=== PATIENT | female | born 1985 | race Caucasian/White ===

== ENCOUNTER 2022-05-13 18:23 | Emergency (ER) | payer OTHER, SELFPAY ==
--- NOTE | ~2022-05-13 | CT_ITS ---
EXAMINATION: CT HEAD WITHOUT CONTRAST CT CERVICAL SPINE WITHOUT CONTRAST CLINICAL INFORMATION: Loss of consciousness. Head strike. Fall. COMPARISON: None. TECHNIQUE: Imaging was performed from the skull base to vertex without intravenous administration of contrast. In addition, helical noncontrast CT imaging was acquired through the cervical spine and source images were reviewed along with axial reconstructions and sagittal and coronal MPRs. [This CT examination was performed using dose optimization techniques as appropriate, variously including the following: *Automated exposure control *Adjustment of mA and/or kV according to patient size (this includes techniques or standardized protocols for targeted exams where dose is matched to indication/reason for exam; i.e. extremities or head) *Use of iterative reconstruction technique] DLP: 967 mGy-cm FINDINGS: HEAD: No intracranial mass, hemorrhage, or midline shift is visualized. The ventricles and sulci are proportional. No extra-axial collections are identified. The paranasal sinuses and mastoid air cells are well aerated. CERVICAL SPINE: There is no evidence of acute cervical spine fracture. Vertebral bodies remain normal in height. Cervical vertebrae have normal alignment. Cervical disc heights are normal. Facet joints are normal. No pre- or paravertebral soft tissue abnormality is identified. Limited assessment of the lung apices is unremarkable. CT/CT head/brain wo con IMPRESSION: 1. No acute intracranial pathology. 2. No CT evidence of acute cervical spine fracture or traumatic subluxation
--- NOTE | ~2022-05-13 | CT_ITS ---
EXAMINATION: CT HEAD WITHOUT CONTRAST CT CERVICAL SPINE WITHOUT CONTRAST CLINICAL INFORMATION: Loss of consciousness. Head strike. Fall. COMPARISON: None. TECHNIQUE: Imaging was performed from the skull base to vertex without intravenous administration of contrast. In addition, helical noncontrast CT imaging was acquired through the cervical spine and source images were reviewed along with axial reconstructions and sagittal and coronal MPRs. [This CT examination was performed using dose optimization techniques as appropriate, variously including the following: *Automated exposure control *Adjustment of mA and/or kV according to patient size (this includes techniques or standardized protocols for targeted exams where dose is matched to indication/reason for exam; i.e. extremities or head) *Use of iterative reconstruction technique] DLP: 967 mGy-cm FINDINGS: HEAD: No intracranial mass, hemorrhage, or midline shift is visualized. The ventricles and sulci are proportional. No extra-axial collections are identified. The paranasal sinuses and mastoid air cells are well aerated. CERVICAL SPINE: There is no evidence of acute cervical spine fracture. Vertebral bodies remain normal in height. Cervical vertebrae have normal alignment. Cervical disc heights are normal. Facet joints are normal. No pre- or paravertebral soft tissue abnormality is identified. Limited assessment of the lung apices is unremarkable. CT/CT cervical spine wo con IMPRESSION: 1. No acute intracranial pathology. 2. No CT evidence of acute cervical spine fracture or traumatic subluxation
[2022-05-13 18:40] VITALS: BP 118/62; BP 122/75; PULSE 60; PULSE 95; RESP 18; TEMP 36.9; O2SAT 99; BMI 16.5
--- NOTE | 2022-05-13 19:01 | ED.NAVMDI ---
HPI - Nausea/Vomiting/Diarrhea General Chief complaint: Fall Stated complaint: fall Source: patient Mode of arrival: ambulatory Limitations: no limitations History of Present Illness HPI Narrative: 36-year-old female presents via EMS for a fall with loss of consciousness, 5 days of nausea vomiting and diarrhea, and chest pain since Wednesday. Patient does not recall the events of today. Reports to have used cocaine yesterday, smokes marijuana daily, and is on Suboxone. MD elicited complaint: nausea, vomiting and abdominal pain Pertinent past history: cyclical vomiting Onset (ago): day(s) (5) Description of vomiting: bilious Associated nausea: Yes Associated abdominal pain: Yes Location of pain: diffuse Pain consistency: constant Severity: moderate Quality: cramping Exacerbating factors: eating and movement Relieving factors: none Context: marijuana use Associated symptoms: chest pain, malaise, nausea/vomiting and change in vision Related Data Allergies Allergy/AdvReac Type Severity Reaction Status Date / Time levofloxacin [From Levaquin] Allergy Mild SHORTNESS Verified 05/13/22 18:39 OF BREATH, RASH apple [Apple] Allergy Unknown MOUTH Verified 05/13/22 18:39 SWELLING - PEEL ONLY grape [Grape] Allergy Unknown MOUTH Verified 05/13/22 18:39 SWELLING TO GRAPE PEEL Review of Systems Review of Systems: Constitutional: No Fever, No Chills ENT/Mouth: No Ear Pain, No Hoarseness, No sore throat Eyes: No Eye Pain, No Swelling, No Redness, No Foreign Body Cardiovascular: No Chest Pain, No SOB Respiratory: No Cough, No Dyspnea Gastrointestinal: No Nausea, No Vomiting, No Diarrhea, No abdominal Pain Genitourinary: No Dysuria, No Hematuria Musculoskeletal: positive joint pain, No Myalgias, No Joint Swelling Skin: No Skin lacerations, No rash Neuro: No Weakness, No Numbness, No Paresthesias, No Loss of Consciousness, No Dizziness, No Headache Psych: No Anxiety/Panic, No Depression Heme/Lymph: no easy bruising, no Lymphadenopathy Endocrine: No Polyuria, No Polydipsia Yes all other systems are reviewed and are negative Gastrointestinal: Gastrointestinal: Reports nausea PMFSH Past Medical History Attestation statement: The following information was validated with the patient. Source: old records reviewed Medical History Cannabinoid hyperemesis syndrome Opiate dependence Social History Social History Alcohol intake: never Patient Tobacco Use Status: Current everyday Tobacco user Smoked in Last 30 Days: Yes Use of substances other than those prescribed or required for medical reasons: Yes Substance Use Type: Marijuana Substance Use Frequency: Chronic Longstanding Advance Directives: No Advance Directives Information Provided: No Patient : No Physical Exam Vital Signs: Vital Signs: Last Vital Signs Temp 98.0 F 05/13/22 23:38 Pulse 60 05/13/22 23:38 Resp 16 05/13/22 23:38 BP 112/57 L 05/13/22 23:38 Pulse Ox 96 05/13/22 23:38 O2 Del Method 05/13/22 23:38 BMI result Body Mass Index 16.5 Appearance: Alert. Oriented X3. Moderate distress. Pale. Eyes: Pupils equal, round and reactive to light. ENT: Pharynx normal. Neck: Normal inspection. Neck supple. CVS: Normal heart rate and rhythm. Pulses normal. Respiratory: No respiratory distress. Breath sounds normal. Abdomen: Soft and nontender. Skin: Skin warm and dry. Normal skin color. Normal skin turgor. Extremities: No lower extremity edema. Moves all extremities against resistance. Neuro: No motor deficit. No sensory deficit. Cranial nerves 2 12 intact. Course Course Course Narrative: 36-year-old female presents via EMS for fall, dizziness, LOC, nausea, vomiting, diarrhea and abdominal pain for 5 days. Does report some chest pain and blurry vision, has been using cocaine, marijuana, and Suboxone. Patient is not forthcoming with information dry jaime, will give Zofran at this time. Physical exam is unremarkable. Will order Zofran and L of fluid. 21:30 labs are unremarkable. White count is 18.4 most likely reactive to cyclic vomiting syndrome. Order for Phenergan and Benadryl as Zofran is minimally effective. 22:30 CT scan of head and neck are negative for acute findings. 23:40 patient continues with nausea and vomiting, order for Compazine, and Valium IV push. 01:28 MEJIA positive for cocaine and marijuana. Plan of care to discharge to home. MDM - Nausea/Vomiting/Diarrhea MDM Narrative Medical decision making narrative: Cyclic vomiting syndrome Differential Diagnosis Differential diagnosis: Likely drug-induced nausea and vomiting and dehydration Medical Records Attestation: I reviewed the patient's medical records. Lab Data Attestation: I reviewed the patient's lab results. Result diagrams: 05/13/22 20:14 05/13/22 20:14 Labs: Lab Results 05/13/22 05/13/22 05/13/22 Range/Units 20:14 20:14 22:30 WBC 18.4 H (4.8-10.8) X10*3/uL RBC 4.81 (4.20-5.50) X10*6/uL Hgb 15.3 (12.0-16.0) g/dl Hct 43.7 (37.0-47.0) % MCV 90.9 (80.0-98.0) fL MCH 31.8 (27.0-33.0) pg MCHC 35.0 (31.0-35.0) g/dl RDW 12.7 (11.0-16.0) % Plt Count 193 (160-400) X10*3/uL MPV 11.1 (9.4-12.3) fL Immature Gran % (Auto) 0.5 H (0.0-0.4) % Neut % (Auto) 87.4 H (45-73) % Lymph % (Auto) 7.1 L (20-40) % [place] % (Auto) 4.6 (2-11) % Eos % (Auto) 0.2 (0-4) % Baso % (Auto) 0.2 (0-2) % Lymph # (Auto) 1.3 (1.2-4.9) X10*3/uL [place] # (Auto) 0.8 (0.1-1.2) X10*3/uL Eos # (Auto) 0.0 (0.0-0.4) X10*3/uL Baso # (Auto) 0.0 (0.0-0.2) X10*3/uL Abs Immat Gran (auto) 0.09 H (0.00-0.03) X10*3/uL Absolute Neuts (auto) 16.1 H (2.0-8.3) x10*3/uL Absolute Nucleated RBC 0.000 (0.0-0.012) X10*3/uL Nucleated RBC % (auto) 0.0 (0.0-0.2) /100WBC Sodium 141 (135-145) mmol/L Potassium 4.2 (3.3-5.1) mmol/L Chloride 106 (96-108) mmol/L Carbon Dioxide 19 L (22-29) mmol/L Anion Gap 20 (12-20) BUN 11 (9-16) mg/dL Creatinine 0.76 (0.5-1.4) mg/dL Estim Creat Clear Calc 76.5 Estimated GFR > 60 Random Glucose 115 (60-115) mg/dL Calcium 10.0 (8.4-10.2) mg/dL Magnesium 1.9 (1.6-2.6) mg/dL Total Bilirubin 0.5 (0.0-1.0) mg/dL Direct Bilirubin 0.2 (0.0-0.5) mg/dL AST 21 (5-31) U/L ALT 12 (0-31) U/L Alkaline Phosphatase 83 (39-117) U/L Total Protein 7.5 (6.5-8.0) g/dL Albumin 4.9 (3.5-5.0) g/dL Lipase 16 (8-78) U/L Beta HCG, Quant < 2 mIU/mL Urine Color YELLOW Urine Appearance HAZY Urine pH 6.0 (5.0-8.0) Ur Specific [place] >= 1.030 H (1.005-1.025) Urine Protein 1+ H (NEG-TRACE) MG/DL Urine Glucose (UA) NEG (NEG) MG/DL Urine Ketones >=80 (NEG) MG/DL Urine Blood TRACE (NEG) Urine Nitrite NEG (NEG) Ur Leukocyte Esterase NEG (NEG) Urine RBC 1-4 (0) /HPF Urine WBC 1-4 (0-4) /HPF Ur Squamous Epith Cells 2+ /LPF Urine Bacteria 2+ /LPF Urine Mucus 2+ /LPF Urine Test (NEGATIVE) Urine Opiates Screen (Not Detect) Urine Fentanyl Screen (Not Detect) Ur Barbiturates Screen (Not Detect) Ur Phencyclidine Scrn (Not Detect) Ur Amphetamines Screen (Not Detect) U Benzodiazepines Scrn (Not Detect) Urine Cocaine Screen (Not Detect) U Marijuana (THC) Screen (Not Detect) 05/13/22 05/13/22 Range/Units 22:30 Unknown WBC (4.8-10.8) X10*3/uL RBC (4.20-5.50) X10*6/uL Hgb (12.0-16.0) g/dl Hct (37.0-47.0) % MCV (80.0-98.0) fL MCH (27.0-33.0) pg MCHC (31.0-35.0) g/dl RDW (11.0-16.0) % Plt Count (160-400) X10*3/uL MPV (9.4-12.3) fL Immature Gran % (Auto) (0.0-0.4) % Neut % (Auto) (45-73) % Lymph % (Auto) (20-40) % [place] % (Auto) (2-11) % Eos % (Auto) (0-4) % Baso % (Auto) (0-2) % Lymph # (Auto) (1.2-4.9) X10*3/uL [place] # (Auto) (0.1-1.2) X10*3/uL Eos # (Auto) (0.0-0.4) X10*3/uL Baso # (Auto) (0.0-0.2) X10*3/uL Abs Immat Gran (auto) (0.00-0.03) X10*3/uL Absolute Neuts (auto) (2.0-8.3) x10*3/uL Absolute Nucleated RBC (0.0-0.012) X10*3/uL Nucleated RBC % (auto) (0.0-0.2) /100WBC Sodium (135-145) mmol/L Potassium (3.3-5.1) mmol/L Chloride (96-108) mmol/L Carbon Dioxide (22-29) mmol/L Anion Gap (12-20) BUN (9-16) mg/dL Creatinine (0.5-1.4) mg/dL Estim Creat Clear Calc Estimated GFR Random Glucose (60-115) mg/dL Calcium (8.4-10.2) mg/dL Magnesium (1.6-2.6) mg/dL Total Bilirubin (0.0-1.0) mg/dL Direct Bilirubin (0.0-0.5) mg/dL AST (5-31) U/L ALT (0-31) U/L Alkaline Phosphatase (39-117) U/L Total Protein (6.5-8.0) g/dL Albumin (3.5-5.0) g/dL Lipase (8-78) U/L Beta HCG, Quant mIU/mL Urine Color Urine Appearance Urine pH (5.0-8.0) Ur Specific [place] (1.005-1.025) Urine Protein (NEG-TRACE) MG/DL Urine Glucose (UA) (NEG) MG/DL Urine Ketones (NEG) MG/DL Urine Blood (NEG) Urine Nitrite (NEG) Ur Leukocyte Esterase (NEG) Urine RBC (0) /HPF Urine WBC (0-4) /HPF Ur Squamous Epith Cells /LPF Urine Bacteria /LPF Urine Mucus /LPF Urine Test NEGATIVE (NEGATIVE) Urine Opiates Screen Not Detected (Not Detect) Urine Fentanyl Screen Not Detected (Not Detect) Ur Barbiturates Screen Not Detected (Not Detect) Ur Phencyclidine Scrn Not Detected (Not Detect) Ur Amphetamines Screen Not Detected (Not Detect) U Benzodiazepines Scrn Not Detected (Not Detect) Urine Cocaine Screen POSITIVE H (Not Detect) U Marijuana (THC) Screen POSITIVE H (Not Detect) Imaging Data CT head cervical spine: Attestation: I personally reviewed and interpreted this imaging study as follows: Radiologist's impression: FINDINGS: HEAD: No intracranial mass, hemorrhage, or midline shift is visualized. The ventricles and sulci are proportional. No extra-axial collections are identified. The paranasal sinuses and mastoid air cells are well aerated. CERVICAL SPINE: There is no evidence of acute cervical spine fracture. Vertebral bodies remain normal in height. Cervical vertebrae have normal alignment. Cervical disc heights are normal. Facet joints are normal. No pre- or paravertebral soft tissue abnormality is identified. Limited assessment of the lung apices is unremarkable. CT/CT cervical spine wo con IMPRESSION: 1. No acute intracranial pathology. 2. No CT evidence of acute cervical spine fracture or traumatic subluxation ? ECG Data Attestation: I personally reviewed and interpreted this ECG as follows: ECG interpretation date: 05/13/22 ECG interpretation time: 23:42 Prior ECG tracings: available for review Interpretation: Vent. rate 64 BPM HI interval 126 ms QRS duration 80 ms QT/QTc 418/431 ms P-R-T axes 82 78 75Normal sinus rhythm with sinus arrhythmia Normal ECG When compared with ECG of 04-MAY-2019 16:11, No significant change was found Discharge Plan Discharge Clinical Impression: Cyclic vomiting syndrome Patient Disposition: Home, Self-Care Instructions: Cyclic Vomiting Syndrome (ED) Additional Instructions: You were evaluated for cyclic vomiting syndrome. CT scan of head and neck are negative for acute findings. Your blood work is within normal limits. Urinalysis is positive for cocaine and marijuana. Cyclic vomiting syndrome is closely associated with marijuana use. You may consider stopping marijuana. Please consider detox. Stop using cocaine. Thank you for choosing this emergency department for evaluation. Please follow-up with primary care physician as needed. Return to the emergency department for any new, concerning, or worsening symptoms.
--- NOTE | 2022-05-13 19:15 | PC.NURSE ---
THIS NURSE HAS NOW ASSUMED CARE OF PT
[2022-05-13] MEDS: 0.9 % Sodium Chloride 1,000 ML 999 ML IVCONT ×2 (19:34→21:49)
[2022-05-13] MEDS: ondansetron HCL 4 MG/2 ML VIAL IVPUSH (19:40)
[2022-05-13 19:55] VITALS: BP 116/65; PULSE 55; RESP 16; TEMP 36.9; O2SAT 98
[2022-05-13 20:18] LABS: MANUAL DIFF FLAG NO
[2022-05-13 20:20] LABS: Basophils Percent Auto 0.2 % (0-2); Eosinophils Percent Auto 0.2 % (0-4); Hematocrit 43.7 % (37.0-47.0); Hemoglobin 15.3 g/dl (12.0-16.0); Imm Gran Abs Auto 0.09 X10*3/uL (0.00-0.03); Imm Gran Pct Auto 0.5 % (0.0-0.4); Lymphocytes Absolute Auto 1.3 X10*3/uL (1.2-4.9); Lymphocytes Percent Auto 7.1 % (20-40); Mean Corpuscular Hemoglobin 31.8 pg (27.0-33.0); Mean Corpuscular Volume 90.9 fL (80.0-98.0); Mean Platelet Volume 11.1 fL (9.4-12.3); Monocytes Absolute Auto 0.8 X10*3/uL (0.1-1.2); Monocytes Percent Auto 4.6 % (2-11); Neutrophils Absolute Auto 16.1 x10*3/uL (2.0-8.3); Neutrophils Percent Auto 87.4 % (45-73); Platelet Count 193 X10*3/uL (160-400); Red Blood Count 4.81 X10*6/uL (4.20-5.50); Red Cell Distribution Width 12.7 % (11.0-16.0); White Blood Count 18.4 X10*3/uL (4.8-10.8)
[2022-05-13] MEDS: diphenhydrAMINE HCL 50 MG/ML VIAL 25 MG IVPUSH (20:43)
[2022-05-13 20:47] LABS: Alanine Aminotransferase 12 U/L (0-31); Albumin Level 4.9 g/dL (3.5-5.0); Alkaline Phosphatase 83 U/L (39-117); Anion Gap 20 (12-20); Aspartate Amino Transferase 21 U/L (5-31); Bilirubin Direct 0.2 mg/dL (0.0-0.5); Bilirubin Total 0.5 mg/dL (0.0-1.0); Blood Urea Nitrogen 11 mg/dL (9-16); Carbon Dioxide 19 mmol/L (22-29); Chloride 106 mmol/L (96-108); Creatinine Clr Calc Pharmacy 76.5; Estimated Glomerular Filt Rate > 60; Glucose Random 115 mg/dL (60-115); Lipase 16 U/L (8-78); Magnesium 1.9 mg/dL (1.6-2.6); Potassium 4.2 mmol/L (3.3-5.1); Sodium 141 mmol/L (135-145); Total Protein 7.5 g/dL (6.5-8.0)
[2022-05-13 21:07] LABS: HCG Quantitative < 2 mIU/mL
[2022-05-13 22:00] VITALS: BP 108/73; PULSE 67; RESP 16; TEMP 36.9; O2SAT 98
--- NOTE | 2022-05-13 22:11 | PC.NURSE ---
PATIENT REFUSED TO GIVE URINE SAMPLE ,RN AWARE .
[2022-05-13 22:52] LABS: Appearance Urine HAZY; Color Urine YELLOW; Glucose Urine UA NEG (NEG); Leukocyte Esterase Urine NEG (NEG); Nitrite Urine NEG (NEG); Specific Gravity - Urine >= 1.030 (1.005-1.025); UACC Culture Trigger NO; Urine Blood TRACE (NEG); Urine Ketones >=80 MG/DL (NEG); Urine Protein 1+ MG/DL (NEG-TRACE)
[2022-05-13 23:04] LABS: UPreg QC Valid YES; Urine Pregnancy NEGATIVE (NEGATIVE)
[2022-05-13 23:06] LABS: Bacteria Urine 2+ /LPF; Mucus Urine 2+ /LPF; Squamous Epithelial Cell Urine 2+ /LPF
--- NOTE | 2022-05-13 23:35 | ECG_ITS ---
Test Reason : VOMITING Blood Pressure : / mmHG Vent. Rate : 064 BPM Atrial Rate : 064 BPM P-R Int : 126 ms QRS Dur : 080 ms QT Int : 418 ms P-R-T Axes : 082 078 075 degrees QTc Int : 431 ms Normal sinus rhythm with sinus arrhythmia Normal ECG When compared with ECG of 04-MAY-2019 16:11, No significant change was found Referred By: Racquel Duckworth Electronically Signed By:LIBAN VILLA MD
[2022-05-13 23:38] VITALS: BP 112/57; PULSE 60; RESP 16; TEMP 36.7; O2SAT 96
[2022-05-13 23:53] LABS: Amphetamine Screen Urine Not Detected (Not Detect); Barbiturates, Urine Not Detected (Not Detect); Benzodiazepines Screen Urine Not Detected (Not Detect); Cannabinoid Screen Urine POSITIVE (Not Detect); Cocaine Screen Urine POSITIVE (Not Detect); Fentanyl, urine Not Detected (Not Detect); Opiate Screen Urine Not Detected (Not Detect); Phencyclidine Screen Urine Not Detected (Not Detect)
[2022-05-14] MEDS: Prochlorperazine Edisylate 10 MG/2 ML VIAL IVPUSH (00:48)
--- NOTE | 2022-05-14 00:48 | PC.NURSE ---
TRACEY RN GAVE MED AT 1148. UNABLE TO SCAN, VERIFY PT. ON BEDSIDE COMPUTER
[2022-05-14] MEDS: diazePAM 10 MG/2 ML CARTRIDGE 5 MG IVPUSH (01:50)
[2022-05-14 02:00] VITALS: BP 116/86; PULSE 73; RESP 16; TEMP 36.8; O2SAT 99
== END 2022-05-14 03:57 | disposition home or self-care (01) ==
PROVIDERS: Nurse Practitioner Family; Emergency Provider Emergency Medicine Emergency Medical Services
DX: S06.2X9A Diffuse traumatic brain injury with loss of consciousness of unspecified duration, initial encounter (principal); R11.15 Cyclical vomiting syndrome unrelated to migraine; M54.2 Cervicalgia; R51.9 Headache, unspecified; F12.188 Cannabis abuse with other cannabis-induced disorder; F14.19 Cocaine abuse with unspecified cocaine-induced disorder; W01.0XXA Fall on same level from slipping, tripping and stumbling without subsequent striking against object, initial encounter; Y93.9 Activity, unspecified; Y92.9 Unspecified place or not applicable; Y99.9 Unspecified external cause status; F17.200 Nicotine dependence, unspecified, uncomplicated; Z71.6 Tobacco abuse counseling; Z79.899 Other long term (current) drug therapy
CPT/HCPCS: 36415; 70450; 72125; 80048; 80076; 80307; 81001; 81003; 81025; 83690; 83735; 84702; 85025; 93005; 96361; 96374; 96375; 99285; J1200; J2405; J2550; J3360

== ENCOUNTER 2024-07-27 10:57 | Emergency (ER) | payer OTHER, SELFPAY ==
--- NOTE | ~2024-07-27 | XR_ITS ---
EXAMINATION: XR LUMBOSACRAL SPINE CLINICAL INFORMATION: Left-sided sciatica COMPARISON: CT abdomen and pelvis 04/27/2019 TECHNIQUE: Three views of the lumbosacral spine. FINDINGS: There is straightening of the lumbar spine. There is some minimal disc space narrowing at L1-L2 and L2-L3 as well as at L5-S1. No significant osteophyte formation is seen. No bony destructive lesions or fractures. An IUD is present in the uterus positioned sideways in the lower uterine segment. XR/XR lumbar spine 2-3V IMPRESSION: 1. Minimal degenerative changes in the lumbar spine. 2. IUD positioned sideways in the lower uterine segment. Electronically signed by: Panda Linton MD 07/27/2024 04:13 PM EDT
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
[2024-07-27 11:44] VITALS: BP 116/78; PULSE 90; RESP 16; TEMP 36.2; O2SAT 98
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
[2024-07-27] MEDS: Lidocaine 4 % Patch ADH..PATCH 1 PATCH TRANSDERMA (13:56)
[2024-07-27] MEDS: Ketorolac Tromethamine 30 MG/ML VIAL IM (14:01)
[2024-07-27] MEDS: Cyclobenzaprine HCl 5 MG TABLET PO (14:02)
[2024-07-27 15:11] VITALS: BP 103/50; PULSE 73; RESP 18; TEMP 36.6; O2SAT 98
== END 2024-07-27 15:18 | disposition home or self-care (01) ==
PROVIDERS: Emergency Provider Emergency Medicine
DX: S13.4XXA Sprain of ligaments of cervical spine, initial encounter (principal); R51.9 Headache, unspecified; M54.2 Cervicalgia; M54.50 Low back pain, unspecified; V43.52XA Car driver injured in collision with other type car in traffic accident, initial encounter; Y93.89 Activity, other specified; Y92.488 Other paved roadways as the place of occurrence of the external cause; Y99.8 Other external cause status
CPT/HCPCS: 70450; 72100; 72125; 96372; 99283; 99284; J1885

== ENCOUNTER 2024-08-21 15:50 | Emergency (ER) | payer OTHER, SELFPAY ==
[2024-08-21 15:59] VITALS: BP 90/55; PULSE 70; O2SAT 99
[2024-08-21 16:01] VITALS: BP 141/76; PULSE 72; RESP 16; TEMP 36.6; O2SAT 100; BMI 18.7
--- NOTE | 2024-08-21 16:22 | ED.GENADULT ---
HPI - General Adult General Chief complaint: General Medical Stated complaint: ABD PAIN Time Seen by Provider: 08/21/24 16:10 Related Data Previous Rx's ?Medication ?Instructions ?Recorded cyclobenzaprine 5 mg tablet 5 mg PO Q8H #7 tabs 07/27/24 lidocaine 5 % topical patch 1 patch topical DAILY #15 ea 07/27/24 (Lidoderm) Allergies Allergy/AdvReac Type Severity Reaction Status Date / Time levofloxacin [From Levaquin] Allergy Mild SHORTNESS Verified 08/21/24 16:04 OF BREATH, RASH apple [Apple] Allergy Unknown MOUTH Verified 08/21/24 16:04 SWELLING - PEEL ONLY grape [Grape] Allergy Unknown MOUTH Verified 08/21/24 16:04 SWELLING TO GRAPE PEEL PMFSH Past Medical History Medical History Cannabinoid hyperemesis syndrome Opiate dependence Social History Social History Alcohol intake: never Patient Tobacco Use Status: Current everyday Tobacco user Substance Use Type: Marijuana Do you have a plan to hurt others: No Plan Physical Exam ED Vital Signs: Vital Signs - 24 hr 08/21/24 16:01 Temperature 97.8 F Pulse Rate 72 Respiratory Rate 16 Blood Pressure 141/76 H Pulse Oximetry 100 Oxygen Delivery Method Room Air BMI result Body Mass Index 18.7 Discharge Plan Discharge Prescriptions: No Action cyclobenzaprine 5 mg tablet 5 mg PO Q8H Qty: 7 0RF lidocaine [Lidoderm] 5 % adhesive patch,medicated 1 patch topical DAILY Qty: 15 0RF Rx Instructions: leave on most painful area for up to 12 hrs Print Language: Tristanian
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
[2024-08-21 16:39] LABS: MANUAL DIFF FLAG NO
[2024-08-21 16:43] LABS: Basophils Percent Auto 0.4 % (0-2); Eosinophils Percent Auto 0.3 % (0-4); Hematocrit 39.6 % (37.0-47.0); Hemoglobin 14.2 g/dl (12.0-16.0); Imm Gran Abs Auto 0.04 X10*3/uL (0.00-0.03); Imm Gran Pct Auto 0.4 % (0.0-0.4); Lymphocytes Absolute Auto 1.4 X10*3/uL (1.2-4.9); Lymphocytes Percent Auto 12.7 % (20-40); Mean Corpuscular HGB Conc 35.9 g/dl (31.0-35.0); Mean Corpuscular Hemoglobin 32.9 pg (27.0-33.0); Mean Corpuscular Volume 91.7 fL (80.0-98.0); Mean Platelet Volume 10.7 fL (9.4-12.3); Monocytes Absolute Auto 0.8 X10*3/uL (0.1-1.2); Monocytes Percent Auto 6.9 % (2-11); Neutrophils Absolute Auto 8.7 x10*3/uL (2.0-8.3); Neutrophils Percent Auto 79.3 % (45-73); Platelet Count 213 X10*3/uL (160-400); Red Blood Count 4.32 X10*6/uL (4.20-5.50); Red Cell Distribution Width 12.2 % (11.0-16.0)
--- NOTE | 2024-08-21 16:48 | PC.NURSE ---
MED NOT STOCKED IN [facility], PHARMACY CALLED WILL DELIVER
[2024-08-21 16:56] LABS: Alanine Aminotransferase 17 U/L (0-31); Albumin Level 4.6 g/dL (3.5-5.0); Alkaline Phosphatase 68 U/L (39-117); Anion Gap 14 (12-20); Aspartate Amino Transferase 23 U/L (5-31); Bilirubin Total 0.5 mg/dL (0.0-1.0); Blood Urea Nitrogen 13 mg/dL (9-16); Calcium 9.3 mg/dL (8.4-10.2); Carbon Dioxide 22 mmol/L (22-29); Chloride 108 mmol/L (96-108); Creatinine Clr Calc Pharmacy 87.5; Estimated Glomerular Filt Rate > 60; Ethanol < 10 mg/dL; Glucose Random 120 mg/dL (60-115); Lipase 8 U/L (8-78); Potassium 3.8 mmol/L (3.3-5.1); Sodium 140 mmol/L (135-145); Total Protein 7.2 g/dL (6.5-8.0)
[2024-08-21] MEDS: 0.9 % Sodium Chloride 1,000 ML 999 ML IV (17:23)
[2024-08-21] MEDS: Haloperidol Lactate 5 MG/ML VIAL IM (17:40)
[2024-08-21] MEDS: diphenhydrAMINE HCL 50 MG/ML VIAL IM (17:40)
[2024-08-21] MEDS: Prochlorperazine Edisylate 10 MG/2 ML VIAL IVPUSH (18:04)
[2024-08-21] MEDS: LORazepam 2 MG/ML VIAL 0.5 MG IVPUSH (18:04)
--- NOTE | 2024-08-21 18:25 | PC.NURSE ---
Patient attempted to elope the department, found by security sitting in front of doors to waiting room. Escorted back to room by security. When asked why she wants to leave, patient states I just don't feel well and I want to go home Informed patient that she just can't get up and leave when she wants, we can talk to provider about discharging. Brain provider made aware, will go speak to patient.
[2024-08-21 18:34] VITALS: BP 114/69; PULSE 69; RESP 18; O2SAT 95
[2024-08-21 18:38] VITALS: BP 114/69; PULSE 69; RESP 18; TEMP 36.7; O2SAT 95
--- NOTE | 2024-08-21 18:40 | PC.NURSE ---
PATIENT SELF REMOVED IV DURING ELOPEMENT ATTEMPT, DECLINED TO STAY FOR FULL WORK UP, AMA FORM SIGNED.
[2024-08-21 18:45] LABS: Influenza A PCR NEGATIVE (Negative); Influenza B PCR NEGATIVE (Negative); Resp Syncy Virus RNA Qual PCR NEGATIVE (Negative); SARS COV2 PCR INHOUSE NEGATIVE (Negative)
== END 2024-08-21 18:42 | disposition left against medical advice (07) ==
PROVIDERS: Nurse Practitioner Family; Emergency Provider Emergency Medicine; PCP Internal Medicine
DX: R10.2 Pelvic and perineal pain (principal); R11.2 Nausea with vomiting, unspecified; F17.210 Nicotine dependence, cigarettes, uncomplicated; Z03.818 Encounter for observation for suspected exposure to other biological agents ruled out; Z79.899 Other long term (current) drug therapy
CPT/HCPCS: 0241U; 36415; 80053; 80307; 83690; 85025; 96361; 96372; 96374; 96375; 99284; J0737; J1200; J1630; J2060

== ENCOUNTER 2024-08-23 08:58 | Emergency (ER) | payer OTHER, SELFPAY ==
[2024-08-23 09:12] VITALS: BP 126/72; BP 134/94; PULSE 60; PULSE 65; RESP 18; TEMP 36.8; O2SAT 100; O2SAT 97; BMI 17.8
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
--- NOTE | 2024-08-23 09:18 | ECG_ITS ---
Test Reason : MEDICAL CLEARANCE Blood Pressure : / mmHG Vent. Rate : 066 BPM Atrial Rate : 066 BPM P-R Int : 124 ms QRS Dur : 086 ms QT Int : 438 ms P-R-T Axes : 085 055 073 degrees QTc Int : 459 ms Normal sinus rhythm with sinus arrhythmia Septal infarct , age undetermined Abnormal ECG When compared with ECG of 13-MAY-2022 23:42, Septal infarct is now Present T wave amplitude has decreased in Anterior leads Referred By: Katalina Lyons Electronically Signed By:Todd Ramirez
[2024-08-23] MEDS: Metoclopramide HCl 10 MG/2 ML VIAL IVPUSH (09:50)
[2024-08-23 09:52] LABS: MANUAL DIFF FLAG NO
[2024-08-23 09:53] LABS: Basophils Percent Auto 0.3 % (0-2); Eosinophils Percent Auto 0.3 % (0-4); Hematocrit 43.3 % (37.0-47.0); Hemoglobin 15.2 g/dl (12.0-16.0); Imm Gran Abs Auto 0.05 X10*3/uL (0.00-0.03); Imm Gran Pct Auto 0.4 % (0.0-0.4); Lymphocytes Absolute Auto 1.8 X10*3/uL (1.2-4.9); Lymphocytes Percent Auto 14.1 % (20-40); Mean Corpuscular HGB Conc 35.1 g/dl (31.0-35.0); Mean Corpuscular Hemoglobin 32.8 pg (27.0-33.0); Mean Corpuscular Volume 93.3 fL (80.0-98.0); Mean Platelet Volume 10.8 fL (9.4-12.3); Monocytes Absolute Auto 0.9 X10*3/uL (0.1-1.2); Monocytes Percent Auto 6.7 % (2-11); Neutrophils Absolute Auto 9.9 x10*3/uL (2.0-8.3); Neutrophils Percent Auto 78.2 % (45-73); Platelet Count 231 X10*3/uL (160-400); Red Blood Count 4.64 X10*6/uL (4.20-5.50); Red Cell Distribution Width 12.6 % (11.0-16.0); White Blood Count 12.6 X10*3/uL (4.8-10.8)
[2024-08-23 10:11] LABS: Acetaminophen LAB < 3 mcg/mL (<30); Alanine Aminotransferase 22 U/L (0-31); Albumin Level 4.7 g/dL (3.5-5.0); Alkaline Phosphatase 68 U/L (39-117); Anion Gap 14 (12-20); Aspartate Amino Transferase 31 U/L (5-31); Bilirubin Total 0.6 mg/dL (0.0-1.0); Blood Urea Nitrogen 12 mg/dL (9-16); Calcium 9.8 mg/dL (8.4-10.2); Carbon Dioxide 25 mmol/L (22-29); Chloride 105 mmol/L (96-108); Creatinine Clr Calc Pharmacy 76.7; Estimated Glomerular Filt Rate > 60; Ethanol < 10 mg/dL; Glucose Random 112 mg/dL (60-115); Potassium 3.5 mmol/L (3.3-5.1); Salicylate < 5.0 mg/dL (15-30); Sodium 140 mmol/L (135-145); Total Protein 7.4 g/dL (6.5-8.0)
[2024-08-23] MEDS: LORazepam 2 MG/ML VIAL 1 MG IVPUSH (10:34)
[2024-08-23] MEDS: hydrOXYzine HCL 25 MG TABLET PO (10:34)
[2024-08-23 11:24] LABS: Appearance Urine Cloudy; Color Urine Dark Yellow; Glucose Urine UA Negative (Negative); Leukocyte Esterase Urine Moderate (2+) (Negative); Nitrite Urine Negative (Negative); Specific Gravity - Urine >= 1.030 (1.005-1.025); UMIC TRIGGER UA YES; UPreg QC Valid YES; Urine Blood Small (1+) (Negative); Urine Ketones 15 mg/dL (Negative); Urine Pregnancy NEGATIVE (NEGATIVE); Urine Protein 30 (1+) mg/dL (Neg-Trace)
[2024-08-23 11:27] LABS: Bacteria Urine 1+ (None Seen); Hyaline Casts Urine 0-2 /LPF (0-2); Squamous Epithelial Cell Urine >20 /HPF (0-2); WBC Urine 21-50 /HPF (0-5)
[2024-08-23 11:31] LABS: Amphetamine Screen Urine Not Detected (Not Detect); Barbiturates, Urine Not Detected (Not Detect); Benzodiazepines Screen Urine POSITIVE (Not Detect); Buprenorphine Scr Not Detected (Not Detect); Cannabinoid Screen Urine POSITIVE (Not Detect); Cocaine Screen Urine Not Detected (Not Detect); Fentanyl, urine Not Detected (Not Detect); Methadone Screen, Urine Not Detected (Not Detect); Opiate Screen Urine Not Detected (Not Detect); Oxycodone Screen Urine Not Detected (Not Detect); Phencyclidine Screen Urine Not Detected (Not Detect)
[2024-08-23] MEDS: Haloperidol Lactate 5 MG/ML VIAL IM (11:45)
[2024-08-23 11:50] LABS: COVID-19 Test Negative (Negative); IDNOW Serial# 152EDE1D
[2024-08-23 12:00] VITALS: BP 113/77; PULSE 64; RESP 12; TEMP 36.7; O2SAT 97
[2024-08-23] MEDS: ondansetron HCL 4 MG/2 ML VIAL IVPUSH (12:49)
--- NOTE | 2024-08-23 14:48 | PC.NURSE ---
med rec completed with pharmacy fill and patient information. per pt she takes 1mg xanax PRN. Not included in med rec bc this is part of the reason that the pt is here - for benzo withdrawal. per pt she takes 60mg prozac, she takes a 40mg and a 20mg daily
[2024-08-23] MEDS: diphenhydrAMINE HCL 25 MG CAPSULE 50 MG PO (14:59)
[2024-08-23] MEDS: diazePAM 2 MG TABLET PO (15:10)
[2024-08-23 17:27] VITALS: BP 113/77; PULSE 64; RESP 12; TEMP 36.7; O2SAT 97
== END 2024-08-23 17:30 | disposition home or self-care (01) ==
PROVIDERS: Physician Assistant Medical; Emergency Provider Student in an Organized Health Care Education/Training Program; PCP Internal Medicine
DX: R11.2 Nausea with vomiting, unspecified (principal); R45.851 Suicidal ideations; I49.8 Other specified cardiac arrhythmias; F41.9 Anxiety disorder, unspecified; F17.210 Nicotine dependence, cigarettes, uncomplicated; F12.90 Cannabis use, unspecified, uncomplicated; F19.10 Other psychoactive substance abuse, uncomplicated; Z79.899 Other long term (current) drug therapy; Z11.52 Encounter for screening for COVID-19
CPT/HCPCS: 80053; 80143; 80179; 80307; 81001; 81025; 85025; 87635; 93005; 96372; 96374; 96375; 99285; J1630; J2060; J2405; J2765; S9485

== ENCOUNTER → 2024-08-23 09:18 | Outpatient (BNV) | payer OTHER, SELFPAY | PROVIDERS: Emergency Provider Student in an Organized Health Care Education/Training Program; PCP Internal Medicine; Visit Provider Internal Medicine Cardiovascular Disease | DX: R94.31 Abnormal electrocardiogram [ECG] [EKG] (principal) | CPT/HCPCS: 93010 ==

== ENCOUNTER 2024-08-26 06:54 | Emergency (ER) | payer OTHER, SELFPAY ==
[2024-08-26 06:58] VITALS: BP 133/102; BP 148/92; PULSE 70; PULSE 76; RESP 20; TEMP 37.2; O2SAT 100; O2SAT 95
--- NOTE | 2024-08-26 07:03 | ED_ITS ---
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 She has gone through this before. She also notes 2 weeks of benzo withdrawal. Feels weak and dehydrated with a headache. She has no fevers, travel, sick contacts. She has no nausea meds at home and has not seen a GI doctor before MD elicited complaint: nausea, vomiting and abdominal pain Pertinent past history: cyclical vomiting Onset (ago): day(s) (1) Description of vomiting: watery and bilious Associated nausea: Yes Associated abdominal pain: Yes Location of pain: epigastric Radiation: diffuse Pain consistency: constant Severity: moderate Quality: aching and constant Exacerbating factors: eating and movement Relieving factors: none Context: marijuana use Associated symptoms: headaches, loss of appetite, malaise, nausea/vomiting, weakness and anxiety Related Data Home Medications ?Medication ?Instructions ?Recorded ?Confirmed duloxetine 20 mg capsule,delayed 20 mg PO DAILY 08/23/24 08/23/24 release duloxetine 40 mg capsule,delayed 40 mg PO DAILY 08/23/24 08/23/24 release mirtazapine 15 mg tablet 15 mg PO BEDTIME 08/23/24 08/23/24 Previous Rx's ?Medication ?Instructions ?Recorded alprazolam 1 mg tablet (Xanax) 1 mg PO BID #10 tabs 08/23/24 cefuroxime axetil 250 mg tablet 250 mg PO BID 7 days #14 tabs 08/26/24 ondansetron 4 mg disintegrating 4 mg PO Q8H PRN nausea and 08/26/24 tablet vomiting #20 tabs promethazine 25 mg rectal 25 mg OH Q6H PRN nausea and 08/26/24 suppository vomiting #12 ea Allergies Allergy/AdvReac Type Severity Reaction Status Date / Time levofloxacin [From Levaquin] Allergy Mild SHORTNESS Verified 08/26/24 07:05 OF BREATH, RASH apple [Apple] Allergy Unknown MOUTH Verified 08/26/24 07:05 SWELLING - PEEL ONLY grape [Grape] Allergy Unknown MOUTH Verified 08/26/24 07:05 SWELLING TO GRAPE PEEL Review of Systems 2 Review of Systems: Constitutional : No Fever, No Chills ENT/Mouth : No sore throat, No Rhinorrhea Eyes: No Swelling, No Redness Cardiovascular : No Chest Pain, No SOB, NoEdema Respiratory : No Cough, No Sputum, No Wheezing Gastrointestinal : Positive Nausea, Positive Vomiting, no Diarrhea, positive abdominal Pain, No Hematochezia, No Melena Genitourinary : No Dysuria, No Urinary Frequency, No Hematuria, No Urgency Musculoskeletal : No joint pain, No Myalgias, No Joint Swelling Skin : No Skin Lesions, No rash Neuro : pos Weakness, No Numbness, No Dizziness, No Headache All other systems reviewed and are negative. Gastrointestinal: Gastrointestinal: Reports nausea PMFSH Past Medical History Attestation statement: The following information was validated with the patient. Source: old records reviewed Medical History Cannabinoid hyperemesis syndrome Opiate dependence Social History Social History Unable to assess alcohol history related to: Unknown Alcohol intake: never Patient Tobacco Use Status: Current everyday Tobacco user Smoked in Last 30 Days: Yes Use of substances other than those prescribed or required for medical reasons: Yes Substance Use Type: Marijuana Substance Use Frequency: Chronic Longstanding Last Used Substance: Days (ago) Advance Directives: No Advance Directives Information Provided: Yes Physical Exam 2 Vital Signs: Vital Signs: Last Vital Signs Temp 97.4 F 08/26/24 09:29 Pulse 108 H 08/26/24 09:29 Resp 18 08/26/24 11:07 BP 97/57 L 08/26/24 09:29 Pulse Ox 94 08/26/24 09:29 O2 Del Method Room Air 08/26/24 09:29 BMI result Body Mass Index 20.0 Appearance: Alert. Oriented X3. Mild acute distress. dry heaving Eyes: Pupils equal, round and reactive to light. ENT: Pharynx dry MM Neck: Normal inspection. Neck supple. CVS: Normal heart rate and rhythm. Pulses normal. Respiratory: No respiratory distress. Breath sounds normal. Abdomen: Soft and moderate diffuse ttp no rebound or guarding Skin: Skin warm and dry. pale skin color. Normal skin turgor. Extremities: No lower extremity edema. Neuro: Oriented X 3. No motor deficit. No sensory deficit. Medications Administered Discontinued Medications Generic Name Dose Route Start Last Admin Trade Name Kimberley PRN Reason Stop Dose Admin Diphenhydramine HCl 25 mg 08/26/24 07:17 08/26/24 07:30 Diphenhydramine Hcl 50 Mg/Ml Vial IVPUSH 08/26/24 07:18 25 mg ONCE ONE Administration Sodium Chloride 1,000 mls @ 999 mls/hr 08/26/24 07:17 08/26/24 09:20 Ns IV 08/26/24 08:17 Infused .Q1H1M ONE Infusion Lactated Ringer's 1,000 mls @ 999 mls/hr 08/26/24 09:34 08/26/24 11:43 Lr IV 08/26/24 10:34 Infused .Q1H1M ONE Infusion Ketorolac Tromethamine 15 mg 08/26/24 10:57 08/26/24 11:08 Ketorolac Tromethamine 15 Mg/Ml Vial IVPUSH 08/26/24 10:58 15 mg ONCE ONE Administration Lorazepam 0.5 mg 08/26/24 07:17 08/26/24 07:29 Lorazepam 2 Mg/Ml Vial IVPUSH 08/26/24 07:18 0.5 mg STAT STA Administration Morphine Sulfate 4 mg 08/26/24 10:57 08/26/24 11:07 Morphine Sulfate 4 Mg/Ml Cartridge IVPUSH 08/26/24 10:58 4 mg ONCE ONE Administration Protocol Ondansetron HCl 4 mg 08/26/24 10:26 08/26/24 10:31 Ondansetron Hcl 4 Mg/2 Ml Vial IVPUSH 08/26/24 10:27 4 mg ONCE ONE Administration Prochlorperazine Edisylate 10 mg 08/26/24 07:17 08/26/24 07:30 Prochlorperazine Edisylate 10 Mg/2 Ml Vial IVPUSH 08/26/24 07:18 10 mg ONCE ONE Administration Medical Decision Making Medical Decision Making MDM Narrative: 39 yo female with PMH of cyclical vomiting from THC here with c/o upper abdominal pain, n/v, anxiety in setting of THC abuse has had this several times - at this time will obtain basic labs, hydrate provide anti nausea medications. She did report 2 weeks of benzo withdrawal - no seizures reported mild bump in BP but no other autonomic signs Differential Diagnosis Differential Diagnoses: The differential diagnosis associated with the presentation includes THC induced vomiting, dehydraiton, lyte abnormality Admission/Observation Consideration of admission/observation: Escalation of care including admission/observation considered tolerating PO feels much better stable for DC Lab Data MDM Lab Attestation statement: I reviewed the patient's lab results. 08/26/24 07:26 08/26/24 07:26 Labs: Lab Results 08/26/24 08/26/24 Range/Units 07:26 10:09 WBC 9.8 (4.8-10.8) X10*3/uL RBC 4.57 (4.20-5.50) X10*6/uL Hgb 15.1 (12.0-16.0) g/dl Hct 41.6 (37.0-47.0) % MCV 91.0 (80.0-98.0) fL MCH 33.0 (27.0-33.0) pg MCHC 36.3 H (31.0-35.0) g/dl RDW 12.2 (11.0-16.0) % Plt Count 233 (160-400) X10*3/uL MPV 10.9 (9.4-12.3) fL Immature Gran % (Auto) 0.2 (0.0-0.4) % Neut % (Auto) 71.5 (45-73) % Lymph % (Auto) 18.8 L (20-40) % [place] % (Auto) 7.9 (2-11) % Eos % (Auto) 1.2 (0-4) % Baso % (Auto) 0.4 (0-2) % Lymph # (Auto) 1.8 (1.2-4.9) X10*3/uL [place] # (Auto) 0.8 (0.1-1.2) X10*3/uL Eos # (Auto) 0.1 (0.0-0.4) X10*3/uL Baso # (Auto) 0.0 (0.0-0.2) X10*3/uL Abs Immat Gran (auto) 0.02 (0.00-0.03) X10*3/uL Absolute Neuts (auto) 7.0 (2.0-8.3) x10*3/uL Absolute Nucleated RBC 0.000 (0.0-0.012) X10*3/uL Nucleated RBC % (auto) 0.0 (0.0-0.2) /100WBC Sodium 140 (135-145) mmol/L Potassium 3.3 (3.3-5.1) mmol/L Chloride 102 (96-108) mmol/L Carbon Dioxide 27 (22-29) mmol/L Anion Gap 14 (12-20) BUN 9 (9-16) mg/dL Creatinine 0.71 (0.5-1.4) mg/dL Estim Creat Clear Calc 93.2 Estimated GFR > 60 Random Glucose 121 H (60-115) mg/dL Calcium 9.5 (8.4-10.2) mg/dL Magnesium 2.1 (1.6-2.6) mg/dL Total Bilirubin 0.6 (0.0-1.0) mg/dL Direct Bilirubin 0.2 (0.0-0.5) mg/dL AST 26 (5-31) U/L ALT 18 (0-31) U/L Alkaline Phosphatase 62 (39-117) U/L Total Protein 7.0 (6.5-8.0) g/dL Albumin 4.4 (3.5-5.0) g/dL Lipase 37 (8-78) U/L Beta HCG, Quant < 2 mIU/mL Urine Color Dark Yellow Urine Appearance Cloudy Urine pH 6.0 (5.0-9.0) Ur Specific [place] 1.020 (1.005-1.025) Urine Protein Trace (Neg-Trace) mg/dL Urine Glucose (UA) Negative (Negative) mg/dL Urine Ketones Trace (Negative) mg/dL Urine Blood Negative (Negative) Urine Nitrite Negative (Negative) Ur Leukocyte Esterase Moderate (2+) H (Negative) Urine RBC 0-2 (0-2) /HPF Urine WBC >50 H (0-5) /HPF Ur Squamous Epith Cells >20 (0-2) /HPF Ur Transition Epith Cell Present Ur Renal Epithelial Cell Present Urine Bacteria 1+ (None Seen) Hyaline Casts 0-2 (0-2) /LPF Urine Opiates Screen Not Detected (Not Detect) Ur Buprenorphine Scrn Not Detected (Not Detect) ng/mL Ur Oxycodone Screen Not Detected (Not Detect) ng/mL Urine Methadone Screen Not Detected (Not Detect) ng/mL Urine Fentanyl Screen Not Detected (Not Detect) Ur Barbiturates Screen Not Detected (Not Detect) Ur Phencyclidine Scrn Not Detected (Not Detect) Ur Amphetamines Screen Not Detected (Not Detect) U Benzodiazepines Scrn POSITIVE H (Not Detect) Urine Cocaine Screen Not Detected (Not Detect) U Marijuana (THC) Screen POSITIVE H (Not Detect) External Record Review External record reviewed: Inpatient record Prescription Management I considered prescription management with: Antibiotic and Other Discharge Plan Discharge Clinical Impression: Cyclical vomiting, Acute UTI Patient Disposition: Home, Self-Care Instructions: Urinary Tract Infection in Women (ED), Acute Nausea and Vomiting (ED) Additional Instructions: return for worsening pain, unable to eat or drink, fevers and vomiting or any other concerns stay hydrated Prescriptions: New cefuroxime axetil 250 mg tablet 250 mg PO BID 7 Days Qty: 14 0RF promethazine 25 mg suppository 25 mg OH Q6H PRN (Reason: nausea and vomiting) Qty: 12 0RF ondansetron 4 mg tablet,disintegrating 4 mg PO Q8H PRN (Reason: nausea and vomiting) Qty: 20 0RF No Action mirtazapine 15 mg tablet 15 mg PO BEDTIME duloxetine 20 mg Capsule,Delayed Release(Dr/Ec) 20 mg PO DAILY duloxetine 40 mg Capsule,Delayed Release(Dr/Ec) 40 mg PO DAILY alprazolam [Xanax] 1 mg tablet 1 mg PO BID Qty: 10 0RF Print Language: Mauritanian
[2024-08-26] MEDS: LORazepam 2 MG/ML VIAL 0.5 MG IVPUSH (07:29)
[2024-08-26] MEDS: 0.9 % Sodium Chloride 1,000 ML 999 ML IV (07:29)
[2024-08-26 07:30] LABS: MANUAL DIFF FLAG NO
[2024-08-26] MEDS: Prochlorperazine Edisylate 10 MG/2 ML VIAL IVPUSH (07:30)
[2024-08-26] MEDS: diphenhydrAMINE HCL 50 MG/ML VIAL 25 MG IVPUSH (07:30)
[2024-08-26 07:51] LABS: Basophils Percent Auto 0.4 % (0-2); Eosinophils Absolute Auto 0.1 X10*3/uL (0.0-0.4); Eosinophils Percent Auto 1.2 % (0-4); Hematocrit 41.6 % (37.0-47.0); Hemoglobin 15.1 g/dl (12.0-16.0); Imm Gran Abs Auto 0.02 X10*3/uL (0.00-0.03); Imm Gran Pct Auto 0.2 % (0.0-0.4); Lymphocytes Absolute Auto 1.8 X10*3/uL (1.2-4.9); Lymphocytes Percent Auto 18.8 % (20-40); Mean Corpuscular HGB Conc 36.3 g/dl (31.0-35.0); Mean Platelet Volume 10.9 fL (9.4-12.3); Monocytes Absolute Auto 0.8 X10*3/uL (0.1-1.2); Monocytes Percent Auto 7.9 % (2-11); Neutrophils Percent Auto 71.5 % (45-73); Platelet Count 233 X10*3/uL (160-400); Red Blood Count 4.57 X10*6/uL (4.20-5.50); Red Cell Distribution Width 12.2 % (11.0-16.0); White Blood Count 9.8 X10*3/uL (4.8-10.8)
[2024-08-26 08:17] LABS: Alanine Aminotransferase 18 U/L (0-31); Albumin Level 4.4 g/dL (3.5-5.0); Alkaline Phosphatase 62 U/L (39-117); Anion Gap 14 (12-20); Aspartate Amino Transferase 26 U/L (5-31); Bilirubin Direct 0.2 mg/dL (0.0-0.5); Bilirubin Total 0.6 mg/dL (0.0-1.0); Blood Urea Nitrogen 9 mg/dL (9-16); Calcium 9.5 mg/dL (8.4-10.2); Carbon Dioxide 27 mmol/L (22-29); Chloride 102 mmol/L (96-108); Creatinine Clr Calc Pharmacy 93.2; Estimated Glomerular Filt Rate > 60; Glucose Random 121 mg/dL (60-115); Lipase 37 U/L (8-78); Magnesium 2.1 mg/dL (1.6-2.6); Potassium 3.3 mmol/L (3.3-5.1); Sodium 140 mmol/L (135-145)
[2024-08-26 08:26] LABS: HCG Quantitative < 2 mIU/mL
[2024-08-26 09:29] VITALS: BP 97/57; PULSE 108; RESP 20; TEMP 36.3; O2SAT 94
[2024-08-26] MEDS: Lactated Ringers 1,000 ML 999 ML IV (10:03)
--- NOTE | 2024-08-26 10:05 | PC.NURSE ---
Attempted to PO trial patient, pt only willing to have 2 small bites of crackers, and a sip of gingerale before stating she was nauseous, provider aware.
[2024-08-26 10:27] LABS: Appearance Urine Cloudy; Color Urine Dark Yellow; Glucose Urine UA Negative (Negative); Leukocyte Esterase Urine Moderate (2+) (Negative); Nitrite Urine Negative (Negative); UMIC TRIGGER UACC YES; Urine Blood Negative (Negative); Urine Ketones Trace mg/dL (Negative); Urine Protein Trace mg/dL (Neg-Trace)
[2024-08-26] MEDS: ondansetron HCL 4 MG/2 ML VIAL IVPUSH (10:31)
[2024-08-26 10:34] LABS: Bacteria Urine 1+ (None Seen); Hyaline Casts Urine 0-2 /LPF (0-2); RBC Urine 0-2 /HPF (0-2); Renal Epithelial Cells Urine Present; Squamous Epithelial Cell Urine >20 /HPF (0-2); Transitional Epi Cells Urine Present; UACC Culture Trigger YES; WBC Urine >50 /HPF (0-5)
[2024-08-26 10:42] LABS: Amphetamine Screen Urine Not Detected (Not Detect); Barbiturates, Urine Not Detected (Not Detect); Benzodiazepines Screen Urine POSITIVE (Not Detect); Buprenorphine Scr Not Detected (Not Detect); Cannabinoid Screen Urine POSITIVE (Not Detect); Cocaine Screen Urine Not Detected (Not Detect); Fentanyl, urine Not Detected (Not Detect); Methadone Screen, Urine Not Detected (Not Detect); Opiate Screen Urine Not Detected (Not Detect); Oxycodone Screen Urine Not Detected (Not Detect); Phencyclidine Screen Urine Not Detected (Not Detect)
[2024-08-26 11:07] VITALS: RESP 18
[2024-08-26] MEDS: Morphine Sulfate 4 MG/ML CARTRIDGE IVPUSH (11:07)
[2024-08-26] MEDS: Ketorolac Tromethamine 15 MG/ML VIAL IVPUSH (11:08)
[2024-08-26 12:35] VITALS: BP 124/63; PULSE 85; RESP 18; TEMP 37; O2SAT 98
== END 2024-08-26 12:36 | disposition home or self-care (01) ==
PROVIDERS: Emergency Provider Emergency Medicine
DX: R11.15 Cyclical vomiting syndrome unrelated to migraine (principal); F12.90 Cannabis use, unspecified, uncomplicated; N39.0 Urinary tract infection, site not specified; F11.20 Opioid dependence, uncomplicated; F17.210 Nicotine dependence, cigarettes, uncomplicated
CPT/HCPCS: 36415; 80048; 80076; 80307; 81001; 83690; 83735; 84702; 85025; 87086; 87147; 96361; 96374; 96375; 99285; J0737; J1200; J1885; J2060; J2270; J2405; J7120

== ENCOUNTER 2025-01-05 06:10 | Emergency (ER) | payer OTHER, SELFPAY ==
[2025-01-05 06:18] VITALS: BP 138/77; PULSE 68; O2SAT 98
[2025-01-05 06:21] VITALS: BP 142/77; PULSE 80; RESP 16; TEMP 36.9; O2SAT 98; BMI 19.8
[2025-01-05 06:46] LABS: MANUAL DIFF FLAG NO
[2025-01-05 06:50] LABS: Basophils Percent Auto 0.3 % (0-2); Eosinophils Percent Auto 0.1 % (0-4); Hematocrit 44.8 % (37.0-47.0); Hemoglobin 15.5 g/dl (12.0-16.0); Imm Gran Abs Auto 0.04 X10*3/uL (0.00-0.03); Imm Gran Pct Auto 0.3 % (0.0-0.4); Lymphocytes Absolute Auto 1.2 X10*3/uL (1.2-4.9); Lymphocytes Percent Auto 8.9 % (20-40); Mean Corpuscular HGB Conc 34.6 g/dl (31.0-35.0); Mean Corpuscular Hemoglobin 32.3 pg (27.0-33.0); Mean Corpuscular Volume 93.3 fL (80.0-98.0); Mean Platelet Volume 11.9 fL (9.4-12.3); Monocytes Absolute Auto 0.6 X10*3/uL (0.1-1.2); Monocytes Percent Auto 4.2 % (2-11); Neutrophils Absolute Auto 11.6 x10*3/uL (2.0-8.3); Neutrophils Percent Auto 86.2 % (45-73); Platelet Count 249 X10*3/uL (160-400); Red Cell Distribution Width 12.8 % (11.0-16.0); White Blood Count 13.5 X10*3/uL (4.8-10.8)
--- NOTE | 2025-01-05 07:20 | ED_ITS ---
HPI - Nausea/Vomiting/Diarrhea General Chief complaint: Nausea/Vomiting/Diarrhea Stated complaint: smoked weed & having panic attack Time Seen by Provider: 01/05/25 06:48 Source: patient and EMS Mode of arrival: ambulatory Limitations: no limitations History of Present Illness ED Provider: SABINA Baca HPI Narrative: This is a 39-year-old female past medical history significant for opiate dependence, hyperemesis syndrome presenting to the emergency department with nausea and vomiting and intermittent abdominal pain when she dry heaves or vomits. She reports she has been smoking weed she reports she is agitated and anxious as well. Not suicidal or homicidal. Denies fevers, chills. Upon history taking she tells me if I do not come with medicine she is leaving this sec. Related Data Home Medications ?Medication ?Instructions ?Recorded ?Confirmed duloxetine 20 mg capsule,delayed 20 mg PO DAILY 08/23/24 08/23/24 release duloxetine 40 mg capsule,delayed 40 mg PO DAILY 08/23/24 08/23/24 release mirtazapine 15 mg tablet 15 mg PO BEDTIME 08/23/24 08/23/24 Previous Rx's ?Medication ?Instructions ?Recorded alprazolam 1 mg tablet (Xanax) 1 mg PO BID #10 tabs 08/23/24 cefuroxime axetil 250 mg tablet 250 mg PO BID 7 days #14 tabs 08/26/24 ondansetron 4 mg disintegrating 4 mg PO Q8H PRN nausea and 08/26/24 tablet vomiting #20 tabs promethazine 25 mg rectal 25 mg [place] Q6H PRN nausea and 08/26/24 suppository vomiting #12 ea Allergies Allergy/AdvReac Type Severity Reaction Status Date / Time levofloxacin [From Levaquin] Allergy Mild SHORTNESS Verified 01/05/25 06:23 OF BREATH, RASH apple [Apple] Allergy Unknown MOUTH Verified 01/05/25 06:23 SWELLING - PEEL ONLY grape [Grape] Allergy Unknown MOUTH Verified 01/05/25 06:23 SWELLING TO GRAPE PEEL Review of Systems 2 Review of Systems: Yes all other systems are reviewed and are negative PMFSH Past Medical History Attestation statement: The following information was validated with the patient. Source: old records reviewed and nursing notes reviewed Medical History Cannabinoid hyperemesis syndrome Opiate dependence Social History Social History Unable to assess alcohol history related to: Unknown Alcohol intake: never Patient Tobacco Use Status: Current everyday Tobacco user Substance Use Type: Marijuana Physical Exam 2 Vital Signs: Vital Signs: Last Vital Signs Temp 98.4 F 01/05/25 06:21 Pulse 80 01/05/25 06:21 Resp 16 01/05/25 06:21 BP 142/77 H 01/05/25 06:21 Pulse Ox 98 01/05/25 06:21 O2 Del Method Room Air 01/05/25 06:21 BMI result Body Mass Index 19.8 vss Appearance: Alert.? Oriented X3.? No acute distress.?+ anxious appearing Head: Normocephalic, atraumatic, no step-offs or deformities Eyes: Pupils equal, round and reactive to light.? Neck: Normal inspection.? Neck supple.? CVS:Pulses normal.? Respiratory: No respiratory distress.? Abdomen: Soft and diffusley tender.? Skin: Skin warm and dry.? Normal skin color.? Normal skin turgor.? Extremities: 5/5 strength to bilateral upper and lower extremities Neuro: Oriented X 3.? No motor deficit.? No sensory deficit. CN 2-12 intact Course Reevaluation(s) Reevaluation #1: Patient's CBC with leukocytosis 13.5 and shift likely reactive due to nausea and vomiting. Chemistry pending Patient is adamant that she wants to leave and she wants her IV out. I will speak to nursing staff. She verbalizes understanding and risks associated with leaving against medical advice. Time: 07:23 Medical Decision Making Medical Decision Making MDM Narrative: 39-year-old female presents with nausea and vomiting status post smoking marijuana. History of hyperemesis syndrome. Physical exam patient appears anxious diffusely tender abdomen. Nontoxic. History and physical exam concerning for hyperemesis syndrome. Unlikely acute abdomen, appendicitis, cholecystitis, diverticulitis, pancreatitis, obstruction. Plan labs, Haldol for nausea and vomiting. Patient is adamant that she is leaving she says she does not want to wait here any longer. Not a threat to self or others. Patient will leave against medical advice Differential Diagnosis Differential Diagnoses: The differential diagnosis associated with the presentation includes (History and physical exam concerning for hyperemesis syndrome. Unlikely acute abdomen, appendicitis, cholecystitis, diverticulitis, pancreatitis, obstruction.) Admission/Observation Consideration of admission/observation: Escalation of care including admission/observation considered (unlikely) Lab Data MDM Lab Attestation statement: I reviewed the patient's lab results. 01/05/25 06:41 01/05/25 06:41 Labs: Lab Results 01/05/25 Range/Units 06:41 WBC 13.5 H (4.8-10.8) X10*3/uL RBC 4.80 (4.20-5.50) X10*6/uL Hgb 15.5 (12.0-16.0) g/dl Hct 44.8 (37.0-47.0) % MCV 93.3 (80.0-98.0) fL MCH 32.3 (27.0-33.0) pg MCHC 34.6 (31.0-35.0) g/dl RDW 12.8 (11.0-16.0) % Plt Count 249 (160-400) X10*3/uL MPV 11.9 (9.4-12.3) fL Immature Gran % (Auto) 0.3 (0.0-0.4) % Neut % (Auto) 86.2 H (45-73) % Lymph % (Auto) 8.9 L (20-40) % [place] % (Auto) 4.2 (2-11) % Eos % (Auto) 0.1 (0-4) % Baso % (Auto) 0.3 (0-2) % Lymph # (Auto) 1.2 (1.2-4.9) X10*3/uL [place] # (Auto) 0.6 (0.1-1.2) X10*3/uL Eos # (Auto) 0.0 (0.0-0.4) X10*3/uL Baso # (Auto) 0.0 (0.0-0.2) X10*3/uL Abs Immat Gran (auto) 0.04 H (0.00-0.03) X10*3/uL Absolute Neuts (auto) 11.6 H (2.0-8.3) x10*3/uL Absolute Nucleated RBC 0.000 (0.0-0.012) X10*3/uL Nucleated RBC % (auto) 0.0 (0.0-0.2) /100WBC External Record Review External record reviewed: Outpatient record Chronic Conditions Patient?s care impacted by: Other (Opiate dependent) Discharge Plan Discharge Clinical Impression: Nausea & vomiting Patient Disposition: Left Against Medical Advice Instructions: Acute Nausea and Vomiting (ED) Additional Instructions: Take your medications as prescribed. If you were prescribed antibiotics today, it is important that you take your medication to their entirety, do not skip any doses, do not finish them early. Follow-up with your primary care provider this week. Return to the emergency department with new or worsening symptoms. Such as fevers, chills, chest pain, shortness of breath, nausea, vomiting, dizziness, headache, vision changes, lethargy In case of emergency call 911 You were deciding to leave against medical advice risks include worsening condition, , undiagnosed illness. Prescriptions: No Action mirtazapine 15 mg tablet 15 mg PO BEDTIME duloxetine 20 mg Capsule,Delayed Release(Dr/Ec) 20 mg PO DAILY duloxetine 40 mg Capsule,Delayed Release(Dr/Ec) 40 mg PO DAILY alprazolam [Xanax] 1 mg tablet 1 mg PO BID Qty: 10 0RF cefuroxime axetil 250 mg tablet 250 mg PO BID 7 Days Qty: 14 0RF promethazine 25 mg suppository 25 mg MS Q6H PRN (Reason: nausea and vomiting) Qty: 12 0RF ondansetron 4 mg tablet,disintegrating 4 mg PO Q8H PRN (Reason: nausea and vomiting) Qty: 20 0RF Stand Alone Forms: Against Medical Advice Print Language: Ecuadorean
[2025-01-05 07:35] VITALS: BP 142/77; PULSE 80; RESP 16; TEMP 36.9; O2SAT 98
== END 2025-01-05 07:37 | disposition left against medical advice (07) ==
PROVIDERS: Emergency Provider Emergency Medicine
DX: R11.2 Nausea with vomiting, unspecified (principal); R45.1 Restlessness and agitation; F41.9 Anxiety disorder, unspecified; F11.20 Opioid dependence, uncomplicated; Z53.29 Procedure and treatment not carried out because of patient's decision for other reasons
CPT/HCPCS: 36415; 80053; 85025; 99282; 99283

== ENCOUNTER 2025-08-30 13:58 | Emergency (ER) | payer OTHER, SELFPAY ==
--- NOTE | 2025-08-30 14:02 | ECG_ITS ---
Test Reason : cp Blood Pressure : */* mmHG Vent. Rate : 99 BPM Atrial Rate : 99 BPM P-R Int : 122 ms QRS Dur : 74 ms QT Int : 350 ms P-R-T Axes : 84 37 69 degrees QTcB Int : 449 ms Normal sinus rhythm Normal ECG When compared with ECG of 23-Aug-2024 09:25, Vent. rate has increased by 33 bpm Criteria for Septal infarct are no longer Present Referred By: Generic ED Physician Electronically Signed By: CIARA SALOMON
[2025-08-30 14:09] VITALS: BP 104/64; PULSE 96; RESP 20; TEMP 37.2; O2SAT 97; BMI 17.6
--- NOTE | 2025-08-30 14:15 | ED.GENADULT ---
HPI - General Adult General Chief complaint: Dyspnea Stated complaint: blood clot? CP, SOB sent from clinic Time Seen by Provider: 08/30/25 16:02 Source: patient Mode of arrival: ambulatory Limitations: no limitations History of Present Illness ED Provider: DR. Aguilar HPI narrative: 40-year-old female active cigarette and marijuana smoker history of bronchitis, patient was seen today at urgent care walk-in clinic had a chest x-ray for upper respiratory symptoms which was abnormal patient was sent to the hospital for further evaluation of possible mass on the x-ray. Patient otherwise has no recent travel, no recent prolonged immobilization, no lower extremity swelling or edema, no history of blood clots. Patient get this symptoms once a year get treated with prednisone and bronchodilator and feels better after. Related Data Home Medications ?Medication ?Instructions ?Recorded ?Confirmed duloxetine 20 mg capsule,delayed 20 mg PO DAILY 08/23/24 08/23/24 release duloxetine 40 mg capsule,delayed 40 mg PO DAILY 08/23/24 08/23/24 release mirtazapine 15 mg tablet 15 mg PO BEDTIME 08/23/24 08/23/24 Previous Rx's ?Medication ?Instructions ?Recorded alprazolam 1 mg tablet (Xanax) 1 mg PO BID #10 tabs 08/23/24 cefuroxime axetil 250 mg tablet 250 mg PO BID 7 days #14 tabs 08/26/24 ondansetron 4 mg disintegrating 4 mg PO Q8H PRN nausea and 08/26/24 tablet vomiting #20 tabs promethazine 25 mg rectal 25 mg ND Q6H PRN nausea and 08/26/24 suppository vomiting #12 ea albuterol sulfate 90 mcg/actuation 2 inh inhalation Q4-6H PRN 08/30/25 breath activated powder inhaler shortness of breath or wheezing #1 ea doxycycline monohydrate 100 mg 100 mg PO BID #14 tabs 08/30/25 tablet guaifenesin 200 mg/5 mL oral liquid 200 mg (5 mL) PO Q4H PRN cough 08/30/25 #118 mL prednisone 20 mg tablet 20 mg PO BID #10 tabs 08/30/25 Allergies Allergy/AdvReac Type Severity Reaction Status Date / Time levofloxacin (From [employer]) Allergy Mild SHORTNESS Verified 08/30/25 14:11 OF BREATH, RASH apple (Apple) Allergy Unknown MOUTH Verified 08/30/25 14:11 SWELLING - PEEL ONLY grape (Grape) Allergy Unknown MOUTH Verified 08/30/25 14:11 SWELLING TO GRAPE PEEL Review of Systems Review of Systems: All other systems are reviewed and are negative Constitutional: Reports as per HPI and Reports no additional constitutional complaints Eyes: Reports as per HPI and Reports no additional eye complaints Reports system reviewed and no additional complaints, except as documented Cardiovascular: Reports as per HPI and Reports no additional cardiovascular complaints Respiratory: Reports as per HPI and Reports no additional respiratory complaints Gastrointestinal: Reports as per HPI and Reports no additional gastrointestinal complaints Genitourinary: Reports no additional female genitourinary complaints Musculoskeletal: Reports no additional musculoskeletal complaints Skin/Breast: Reports system reviewed and no additional complaints, except as docu Psychiatric: Reports no additional psychiatric complaints Endocrine: Reports no additional endocrine complaints Hematologic/Lymphatic: Reports no additional hematologic/lymphatic complaints Allergic/Immunologic: Reports no additional allergic/immunologic complaints Reports system reviewed and no additional complaints, except as documented and Reports Abnormal speech present [facility] Past Medical History Medical History Cannabinoid hyperemesis syndrome Opiate dependence Social History Social History Alcohol intake: never Patient Tobacco Use Status: Current everyday Tobacco user Smoked in Last 30 Days: No Use of substances other than those prescribed or required for medical reasons: No Substance Use Type: Marijuana Advance Directives: No Advance Directives Information Provided: No Do you have a plan to hurt others: No Plan Patient : No Physical Exam ED Vital Signs: Vital Signs - 24 hr 08/30/25 14:09 08/30/25 16:33 Temperature 98.9 F Pulse Rate 96 85 Respiratory Rate 20 19 Blood Pressure 104/64 Pulse Oximetry 97 Oxygen Delivery Method Room Air BMI result Body Mass Index 17.6 Vital signs have been reviewed and appear to be correct. Blood pressure elevated. Heart rate normal. Respiratory rate normal. Temperature normal. Oxygen saturation normal. Appearance: Alert. Oriented X3. No acute distress. Head: Normal external exam. Normocephalic. Atraumatic. No Richards signs noted. No raccoon eyes noted Eyes: PERRLA. EOMI. Conjunctiva and sclera normal. Eyelids normal. ENT: TM's Normal. Pharynx normal. Uvula midline. Moist mucous membranes. No trismus noted. No drooling noted. No muffled voice noted. Neck: Normal inspection. Neck supple. FROM. No adenopathy. Thyroid Normal. No meningeal signs. No neck mass noted. CVS: Normal heart rate and rhythm. Heart sound normal. No murmurs noted. Pulses normal throughout. Respiratory: No respiratory distress. Painless inspiration. Breath sounds normal. Prolonged expiratory phase with diffuse expiratory wheezing, No accessory muscle usage noted or decreased air movement noted. Abdomen: Soft and nontender. Bowel sounds normal in all 4 quadrants. No distention noted. No organomegaly noted. No visible injury noted. Back: No CVA tenderness. Full range of motion noted. Skin: Skin warm and dry. Normal skin color. Normal skin turgor. No rashes/lesions/lacerations noted. Extremities: No lower extremity edema. Extremities exhibit normal range of motion. Extremities nontender. Neuro: Oriented X 3. Cranial nerve exam: II-XII are grossly intact No motor deficit. No sensory deficit. Reflexes normal. Course Course Course Narrative: RME: 40-year-old female sent from urgent care for chest CT scan due to mass on chest x-ray. Labs ordered Reevaluation(s) Reevaluation #1: Came in for evaluation of cough and upper respiratory symptoms, exam is revealing possible acute bronchitis patient usually improve with bronchodilator/Z-David / prednisone when this happened. Patient originally came in from urgent care for abnormal chest x-ray and was told to come to the ED for further evaluation. Patient is aware that by not continuing the workup today and leaving against medical advice scan put the patient at risk of missing a life-threatening finding on the x-ray, patient ensured me that she will follow-up with her PCP but she has to leave today to pick and shovel man her child. patient fully understood my concerns and instructed to come back if worsening of her symptoms. Time: 17:42 Medications Administered Discontinued Medications Generic Name Dose Route Start Last Admin Trade Name Freq PRN Reason Stop Dose Admin Albuterol/Ipratropium 3 ml 08/30/25 16:29 08/30/25 16:33 Albuterol/Iprat 2.5/0.5mg 3 Ml Ampul.Neb INHALE 08/30/25 16:30 3 ml ONCE ONE Administration Guaifenesin/Codeine Phosphate 10 ml 08/30/25 16:36 08/30/25 17:39 Guaifen/Codeine Sf 200/20/10ml 10 Ml Liquid PO 10 ml Q6H PRN Administration Cough Prednisone 60 mg 08/30/25 16:14 08/30/25 17:39 Prednisone 20 Mg Tablet PO 08/30/25 16:15 60 mg ONCE ONE Administration Medical Decision Making Differential Diagnosis Differential Diagnoses: The differential diagnosis associated with the presentation includes ( Pneumonia, pneumothorax, pleural effusion, acute bronchitis, pulmonary embolism.) Admission/Observation Consideration of admission/observation: Escalation of care including admission/observation considered Lab Data MDM Lab Attestation statement: I reviewed the patient's lab results. 08/30/25 15:11 08/30/25 15:11 Labs: Lab Results 08/30/25 Range/Units 15:11 WBC 6.8 (4.8-10.8) X10*3/uL RBC 4.03 L (4.20-5.50) X10*6/uL Hgb 12.3 D (12.0-16.0) g/dl Hct 37.0 (37.0-47.0) % MCV 91.8 (80.0-98.0) fL MCH 30.5 (27.0-33.0) pg MCHC 33.2 (31.0-35.0) g/dl RDW 13.3 (11.0-16.0) % Plt Count 240 (160-400) X10*3/uL MPV 10.7 (9.4-12.3) fL Immature Gran % (Auto) 0.1 (0.0-0.4) % Neut % (Auto) 43.5 L (45-73) % Lymph % (Auto) 30.6 (20-40) % [place] % (Auto) 13.6 H (2-11) % Eos % (Auto) 11.6 H (0-4) % Baso % (Auto) 0.6 (0-2) % Lymph # (Auto) 2.1 (1.2-4.9) X10*3/uL [place] # (Auto) 0.9 (0.1-1.2) X10*3/uL Eos # (Auto) 0.8 H (0.0-0.4) X10*3/uL Baso # (Auto) 0.0 (0.0-0.2) X10*3/uL Abs Immat Gran (auto) 0.01 (0.00-0.03) X10*3/uL Absolute Neuts (auto) 3.0 (2.0-8.3) x10*3/uL Absolute Nucleated RBC 0.000 (0.0-0.012) X10*3/uL Nucleated RBC % (auto) 0.0 (0.0-0.2) /100WBC PT 10.6 L (11.2-13.5) SEC INR 0.9 (0.9-1.1) APTT 25.9 L (26.7-34.1) SEC D-Dimer High Sensitivty < 150 NG/ML Sodium 142 (135-145) mmol/L Potassium 3.8 (3.3-5.1) mmol/L Chloride 107 (96-108) mmol/L Carbon Dioxide 28 (22-29) mmol/L Anion Gap 11 L (12-20) BUN 13 (9-16) mg/dL Creatinine 0.60 (0.5-1.4) mg/dL Estim Creat Clear Calc 96.5 Estimated GFR > 60 Random Glucose 101 (60-115) mg/dL Calcium 8.6 D (8.4-10.2) mg/dL Total Bilirubin 0.1 (0.0-1.0) mg/dL AST 27 (5-31) U/L ALT 8 (0-31) U/L Alkaline Phosphatase 103 (39-117) U/L Troponin I High Sens < 2.7 (<3.5-17.0) ng/L NT-Pro-B Natriuret Pep 51.9 (<300) pg/mL Total Protein 6.5 (6.5-8.0) g/dL Albumin 3.9 (3.5-5.0) g/dL Influenza Type A (PCR) NEGATIVE (Negative) Influenza Type B (PCR) NEGATIVE (Negative) RSV RNA Qual (PCR) NEGATIVE (Negative) SARS-CoV-2 RNA (RT-PCR) NEGATIVE (Negative) Discharge Plan Discharge Clinical Impression: Acute bronchitis Patient Disposition: Left Against Medical Advice Instructions: How to Stop Smoking (ED), Acute Bronchitis (ED) Additional Instructions: follow-up with your PCP for abnormal chest x-ray was done today at the walk-in clinic. Prescriptions: New albuterol sulfate 90 mcg/actuation aerosol powdr breath activated 2 inh inhalation Q4-6H PRN (Reason: shortness of breath or wheezing) Qty: 1 0RF prednisone 20 mg tablet 20 mg PO BID Qty: 10 0RF guaifenesin 200 mg/5 mL liquid 200 mg PO Q4H PRN (Reason: cough) Qty: 118 0RF doxycycline monohydrate 100 mg tablet 100 mg PO BID Qty: 14 0RF No Action mirtazapine 15 mg tablet 15 mg PO BEDTIME duloxetine 20 mg Capsule,Delayed Release(Dr/Ec) 20 mg PO DAILY duloxetine 40 mg Capsule,Delayed Release(Dr/Ec) 40 mg PO DAILY alprazolam [Xanax] 1 mg tablet 1 mg PO BID Qty: 10 0RF cefuroxime axetil 250 mg tablet 250 mg PO BID 7 Days Qty: 14 0RF promethazine 25 mg suppository 25 mg ND Q6H PRN (Reason: nausea and vomiting) Qty: 12 0RF ondansetron 4 mg tablet,disintegrating 4 mg PO Q8H PRN (Reason: nausea and vomiting) Qty: 20 0RF Stand Alone Forms: Against Medical Advice Interventions: ED Discharge Assessment Last Done: 08/30/25 17:55 Discharge Date/Time: 08/30/25 18:06 Print Language: Nicaraguan
[2025-08-30 15:17] LABS: MANUAL DIFF FLAG NO
[2025-08-30 15:23] LABS: Hematocrit 37.0 % (37.0-47.0); Hemoglobin 12.3 g/dl (12.0-16.0); Imm Gran Abs Auto 0.01 X10*3/uL (0.00-0.03); Imm Gran Pct Auto 0.1 % (0.0-0.4); Lymphocytes Absolute Auto 2.1 X10*3/uL (1.2-4.9); Mean Corpuscular HGB Conc 33.2 g/dl (31.0-35.0); Mean Corpuscular Hemoglobin 30.5 pg (27.0-33.0); Mean Corpuscular Volume 91.8 fL (80.0-98.0); NRBC Abs Auto 0.000 X10*3/uL (0.0-0.012); NRBC Pct Auto 0.0 /100WBC (0.0-0.2); Platelet Count 240 X10*3/uL (160-400); Red Blood Count 4.03 X10*6/uL (4.20-5.50); White Blood Count 6.8 X10*3/uL (4.8-10.8)
[2025-08-30 15:33] LABS: Alanine Aminotransferase 8 U/L (0-31); Albumin Level 3.9 g/dL (3.5-5.0); Alkaline Phosphatase 103 U/L (39-117); Anion Gap 11 (12-20); Aspartate Amino Transferase 27 U/L (5-31); Blood Urea Nitrogen 13 mg/dL (9-16); Calcium 8.6 mg/dL (8.4-10.2); Carbon Dioxide 28 mmol/L (22-29); Chloride 107 mmol/L (96-108); Creatinine Clr Calc Pharmacy 96.5; Estimated Glomerular Filt Rate > 60; Potassium 3.8 mmol/L (3.3-5.1); Sodium 142 mmol/L (135-145); Total Protein 6.5 g/dL (6.5-8.0)
[2025-08-30 15:40] LABS: INTERNATIONAL NORM RATIO 0.9 (0.9-1.1); Prothrombin Time 10.6 SEC (11.2-13.5)
[2025-08-30 15:43] LABS: Partial Thromboplastin Time 25.9 SEC (26.7-34.1); Troponin-I High Sensitivity < 2.7 ng/L (<3.5-17.0)
[2025-08-30 16:05] LABS: NT Pro B Type Natriuretic Pept 51.9 pg/mL (<300)
[2025-08-30 16:11] LABS: Resp Syncy Virus RNA Qual PCR NEGATIVE (Negative); SARS COV2 PCR INHOUSE NEGATIVE (Negative)
[2025-08-30 16:33] VITALS: PULSE 85; RESP 19; O2SAT 98
[2025-08-30] MEDS: Albuterol/Iprat 2.5/0.5MG 3 ML AMPUL.NEB INHALE (16:33)
[2025-08-30 16:59] LABS: D Dimer High Sensitivity < 150 NG/ML
[2025-08-30] MEDS: guaiFEN/Codeine SF 200/20/10ML 10 ML LIQUID PO (17:39)
[2025-08-30 17:55] VITALS: BP 110/68; PULSE 88; RESP 20; TEMP 37.2; O2SAT 97
--- OUTSIDE RECORDS SUMMARY | 2025-08-30 20:25 | XMS_ITS | Clinical Summary ---
Author Organization [employer] Address [address] [place] [address] Care Team Providers Care Clubhouse Attendant Name Role Phone Unavailable Primary Care Provider Unavailabl e Allergies Active Allergy Reactions Criticality Noted Date Comments Levofloxacin High 01/15/2025 Medications gabapentin (Neurontin) 300 MG capsule Take 3 capsules by mouth every 6 (six) hours during the day. Active ALPRAZolam (Xanax) 1 MG tablet Take 1 mg by mouth if needed at bedtime for anxiety. Active clonazePAM (KlonoPIN) 1 MG tablet Take by mouth 2 times daily. Active FLUoxetine (PROzac Weekly) [address] capsule Take 90 mg by mouth every 7 (seven) days. Do not crush, chew, or split. Active mirtazapine (Remeron Christine-Tab) 15 MG disintegrating tablet Take 15 mg by mouth at bedtime. Active Ventolin HFA 108 (90 Base) MCG/ACT inhaler INHALE 1 PUFF 3 TIMES A DAY NEEDED FOR WHEEZE FOR 10 DAYS 5 Active Encounters Date Type Department Care Team Description 08/14/2025 2:30 PM EST Office Visit [facility] [address] [place] [address] Bolivar Mathur Bone loss (Primary Dx); Caries 08/09/2025 3:30 PM EDT Office Visit [facility] [address] [place] [address] Bolivar Mathur from Last 3 Months Social History Tobacco Use Types Packs/Day Years Used Date Smoking Tobacco: Never Assessed Comments Unknown Sex and Gender Information Value Date Recorded Sex Assigned at Female 08/10/2022 10:34 AM EDT Legal Sex Female 10:34 AM EDT Gender Identity Choose not to disclose 10:34 AM EDT Sexual Orientation Choose not to disclose 2021 10:34 AM EDT Last Filed Vital Signs Vital Sign Reading Time Taken Comments Blood Pressure 140/85 01/15/2025 11:25 AM EDT Pulse - - Temperature - - Respiratory Rate - - Oxygen Saturation - - Inhaled Oxygen Concentration - - Weight - - Height - - Body Mass Index - - Plan of Treatment Upcoming Encounters Date Type Department Care Team (Late st Contact Info) Description 09/21/2025 9:30 AM EST Office Visit [facility] [address] [place] [address] Rosas, Wendy [address] [place] [address] Health Maintenance Due Date Last Done Comments Dental Prophylaxis 1987 Depression Screening 1987 HIV Screening 1987 SDOH Screening 1987 Disability Screening 1987 DTaP/Tdap/Td Vaccines (6 - Tdap) 1998 03/11/1992, 04/10/1989, 04/10/1989, Additional history exists Alcohol/Substance Use Screening 1999 Tobacco Screening 1999 Family Planning (PISQ) 2002 HPV Vaccines (1 - 3-dose series) 2002 Hepatitis C Screening 2005 Pap Smear 2008 Cervical Cancer Screening 2017 HPV/Cotest 2017 COVID-19 Vaccine (2024- season) 2025 Influenza Vaccine (#1) 2025 Dental Oral Exam 02/12/2026 08/14/2025 Dental X-Ray: Bitewings 08/15/2026 08/14/20, 01/15/2025, 09/22/2018 Dental X-Ray: Full Mouth 08/15/2028 08/14/2025, 09/10 Zoster Vaccines (1 of 2) 2037 RSV Patients and Patients Aged 60 years or older (1 - 1-dose 75+ series) 2062 HIB Vaccines Completed 04/10/1989 IPV Vaccines Completed 03/11/1992, 07/0 10/1988, 04/10/1989, Additional history exists Hepatitis B Vaccines Completed 08/13/1999, 03/12/1999, 02/12/1999 Hepatitis A Vaccines Aged Out No long er eligible based on patient's age to complete this topic Meningococcal B Vaccine Aged Out No l onger eligible based on patient's age to complete this topic Meningococcal Vaccine Aged Out No anne marie radha eligible based on patient's age to complete this topic Pneumococcal Vaccine: Pediatrics (0 to 5 Years) and At-Risk Patients (6 to 49) Years Aged Out No longer eligible based on patient's age to complete this topic RSV under 20 months Aged Out No longe r eligible based on patient's age to complete this topic Rotavirus Vaccines Aged Out No longer eligible based on patient's age to complete this topic Procedures Procedure Name Priority Date/Time Associated Diagnosis Comments CASE PRESENTATION, DETAILED AND EXTENSIVE TREATMENT PLANNING Routine 08/14/2025 2:30 PM EST INTRAORAL - COMPLETE SERIES OF RADIOGRAPHIC IMAGES Routine 08/14/2025 2:30 PM EST COMPREHENSIVE ORAL EVALUATION - NEW OR ESTABLISHED PATIENT Routine 08/14/2025 2:30 PM EST 30 O AMALGAM FILLING Routine 08/14/2025 12:00 AM EST 14 MO AMALGAM FILLING Routine 08/14/2025 12:00 AM EST 4 DO AMALGAM FILLING Routine 08/14/2025 12:00 AM EST 3 O AMALGAM FILLING Routine 08/14/2025 1 2:00 AM EST INTRAORAL - PERIAPICAL FIRST RADIOGRAPHIC IMAGE Routine 08/09/2025 3:30 PM EDT CASE PRESENTATION, DETAILED AND EXTENSIVE TREATMENT PLANNING Routine 08/09/2025 3:30 PM EDT LIMITED ORAL EVALUATION - PROBLEM FOCUSED Routine 08/09/2025 3:30 PM EDT from Last 3 Months Insurance [facility] MEDICAID STAND ADULT
== END 2025-08-30 18:06 | disposition left against medical advice (07) ==
PROVIDERS: Physician Assistant; Emergency Provider Emergency Medicine
DX: J40 Bronchitis, not specified as acute or chronic (principal); Z53.29 Procedure and treatment not carried out because of patient's decision for other reasons; Z03.818 Encounter for observation for suspected exposure to other biological agents ruled out
CPT/HCPCS: 80053; 83880; 84484; 85025; 85379; 85610; 85730; 87637; 93005; 99284; 99285

== ENCOUNTER → 2025-08-30 14:02 | Outpatient (BNV) | payer OTHER, SELFPAY | PROVIDERS: Emergency Provider Emergency Medicine; Visit Provider Internal Medicine | DX: R07.9 Chest pain, unspecified (principal) | CPT/HCPCS: 93010 ==